=== PATIENT | female | born 1975 | race Caucasian/White ===

== ENCOUNTER 2017-08-29 11:17 | Emergency (ER) | payer MEDICAID ==
[2017-08-29] MEDS ORDERED: traMADol 50 MG TAB PO ONE (12:58)
--- NOTE | 2017-08-29 12:58 | EDPHY ---
H & P Stated Complaint: L Lumbar pain Time Seen by Provider: 08/29/17 12:39 HPI/ROS: CHIEF COMPLAINT: Acute low back pain HISTORY OF PRESENT ILLNESS: 42-year-old female history of chronic back pain with lumbar fusion in January 2017 in [place], or again, recently moved to [place]. Yesterday she was cleaning, bent over and felt something "pop" in her lumbar region. [place] immediate pain, felt new left lower extremity radiculopathy. No incontinence no retention. No saddle anesthesia. REVIEW OF SYSTEMS: A ten point review of systems was performed and is negative with the exception of the items mentioned in the HPI PAST MEDICAL & SURGICAL HISTORY: Lumbar fusion January 2017 in [place] SOCIAL HISTORY: Nonsmoker recently moved to [place] PHYSICAL EXAM (Prior to examination, patient consented to physical exam, hands were washed and my usual and customary physical exam procedures followed) 1) GENERAL: Well-developed, well-nourished, alert and oriented. Appears uncomfortable laying in a right lateral recumbent position. 2) HEAD: Normocephalic, atraumatic 3) HEENT: Pupils equal, round, reactive to light bilaterally. Sclera anicteric. Nasopharynx, oropharynx, clear, no lesions. 4) NECK: Full range of motion, no meningeal signs. 5) LUNGS: Clear auscultation bilaterally, no wheezes, no rhonchi, no retractions. 6) HEART: Regular rate and rhythm, no murmur, no heave, no gallop. 7) ABDOMEN: No guarding, no rebound, no focal tenderness, negative McBurney's, negative Lopez's, negative Rovsing's, negative peritoneal sign, 8) MUSCULOSKELETAL: Moving all extremities, no focal areas of tenderness, no obvious trauma. No peripheral edema or discoloration. 9) BACK: Multiple surgical scars in lumbar region noted. Tender to palpation midline. No signs of acute trauma.. No CVA tenderness, no midline vertebral tenderness, no fluctuance, no step-off, no obvious trauma, no visual or palpable abnormality. Patella, Achilles reflexes intact to bilateral strength 5 /5 10) SKIN: No rash, no petechiae. 11) NEURO: Awake, alert, and oriented to person, place and time. Answers questions appropriately. There were no obvious focal neurologic abnormalities. No cerebellar dysfunction. Normal steady gait. Upper and lower extremities bilaterally with strength 5 / 5, reflexes 2+.. DIFFERENTIAL DIAGNOSIS: In no particular order, including but not limited to, fracture, sprain/strain, cauda equina, spinal infectious etiology. - Personal History LMP (Females 10-55): Hysterectomy Current Tetanus/Diphtheria Vaccine: Yes Current Tetanus Diphtheria and Acellular Pertussis (TDAP): Yes - Medical/Surgical History Hx Asthma: Yes Hx Chronic Respiratory Disease: No Hx Diabetes: No Hx Cardiac Disease: Yes Hx Renal Disease: No Hx Cirrhosis: No Hx Alcoholism: No Hx HIV/AIDS: No Hx Splenectomy or Spleen Trauma: No Other PMH: HYsterectomy, DDD, L5 fusion, POTS, asthma, - Social History Smoking Status: Never smoked Constitutional: Initial Vital Signs Temperature (C) 36.8 C 08/29/17 11:27 Heart Rate 78 08/29/17 11:27 Respiratory Rate 16 08/29/17 11:27 Blood Pressure 143/87 H 08/29/17 11:27 O2 Sat (%) 98 08/29/17 11:27 O2 Delivery Mode Room Air Allergies/Adverse Reactions: acetaminophen [From Vicodin] Allergy (Verified 08/29/17 11:26) adhesive tape Allergy (Verified 08/29/17 11:30) alcohol Allergy (Verified 08/29/17 11:30) barium iodide Allergy (Verified 08/29/17 11:26) fentanyl Allergy (Verified 08/29/17 11:26) hydrocodone [From Vicodin] Allergy (Verified 08/29/17 11:26) hydromorphone Allergy (Verified 08/29/17 11:57) iodine Allergy (Verified 08/29/17 11:26) ketorolac [From Toradol] Allergy (Verified 08/29/17 11:57) morphine Allergy (Verified 08/29/17 11:26) Home Medications: Medication Instructions Recorded Lyrica 08/29/17 Vitamin C 08/29/17 Zyrtec 08/29/17 methylPREDNISolone [Medrol Dose 4 mg PO DAILY #1 ea 08/29/17 Isra] traMADol [Ultram 50 mg (*)] 50 mg PO Q6 #12 tab 08/29/17 Medical Decision Making - Diagnostics Imaging Results: Imaging Impressions Lumbar Spine X-Ray 08/29/17 12:03 Impression: 1. L4 through S1 fusion constructs demonstrate L5-S1 severe degenerative disk disease with grade 2 anterolisthesis, likely resulting in spinal canal and neural foraminal stenosis. 2. No prior studies for comparison. Lumbar Spine MRI 08/29/17 12:58 Impression: 1. L5-S1: Grade 2 spondylolisthesis with severe degenerative disk disease and posterior fusion constructs, resulting in severe bilateral neural foraminal stenosis without central canal stenosis. 2. Please see above findings at specific disk levels. Findings and recommendations discussed with Chinedu Elias PA-C at 1458 hours on August 29, 2017. Final report concurs with initial preliminary interpretation. ED Course/Re-evaluation: 1:00 p.m.: Patient was evaluated by myself. She is neurologically intact lower extremities with brisk reflexes. She does note new neurologic complaints after bending over yesterday felt a pop in her lumbar spine has new left lower extremity radiculopathy. I discussed case with secondary supervising physician Dr. Marques Galaviz in the ER. Plan will be MRI. We discussed pain management. She has multiple allergies, states that she is able to tolerate Demerol and tramadol. I discussed her pain management from the emergency department, discussed alternatives to opiates therapy, offered medications such as ketamine, Haldol. She declines these. States that tramadol has provided analgesia in the past. Will administer oral tramadol. 3:19 p.m.: Phone consultation with Dr. Duran, Neurosurgery who reviewed the patient's images. The patient's pain is currently controlled the recommend discharge home with analgesia, Medrol Dosepak, follow up in office. I discussed this with the patient she feels comfortable with this plan. - Data Points Medications Given: Discontinued Medications Tramadol HCl (Ultram) 50 mg PO EDNOW ONE Stop: 08/29/17 12:59 Last Admin: 08/29/17 13:08 Dose: 50 mg Departure - Departure Disposition: Home, Routine, Self-Care Clinical Impression: Low back pain Qualifiers: Chronicity: acute Back pain laterality: left Sciatica presence: with sciatica Sciatica laterality: sciatica of left side Qualified Code(s): M54.42 - Lumbago with sciatica, left side Condition: Good Instructions: Back Pain (ED) Additional Instructions: Seek medical attention if you develop new or worsening pain, if you develop bladder or bowel dysfunction, numbness around your perineum, foot drop, or any other symptoms that concern you. Referrals: Randall Duran MD [Medical Doctor] - As per Instructions Prescriptions: methylPREDNISolone [Medrol Dose Isra] 4 mg PO DAILY #1 ea traMADol [Ultram 50 mg (*)] 50 mg PO Q6 #12 tab
[2017-08-29 15:33] VITALS: BP 135/92; PULSE 69; RESP 12; TEMP 97.5; O2SAT 97
== END 2017-08-29 15:33 | disposition home or self-care (01) ==
DX: M54.42 Lumbago with sciatica, left side (principal); J45.909 Unspecified asthma, uncomplicated

== ENCOUNTER → 2017-09-18 | Outpatient (CLI) | payer MEDICAID | LOC: FIMAGING 10:08 | PROVIDERS: ATTEND Neurological Surgery | DX: M54.9 Dorsalgia, unspecified (principal); M48.07 Spinal stenosis, lumbosacral region; K57.30 Diverticulosis of large intestine without perforation or abscess without bleeding; R93.8 Abnormal findings on diagnostic imaging of other specified body structures; Z98.1 Arthrodesis status ==

== ENCOUNTER 2018-03-01 13:59 | Emergency (ER) | payer MEDICAID ==
--- NOTE | 2018-03-01 14:18 | EDPHY ---
H & P Stated Complaint: Foot pain s/p computer chair dropped on foot Time Seen by Provider: 03/01/18 14:13 HPI/ROS: HPI: This is a 42-year-old female who presents with Chief Complaint: Foot pain s/p computer chair dropped on foot Location: Left ankle and foot Quality: Injury Duration: On Thursday Signs and Symptoms: No bleeding, no radiation, no numbness, no weakness, no tingling, no incontinence, no decreased range of motion, + swelling, + pain, no fever, + bruising Timing: Acute Severity: Moderate Context: Patient reports that she was cleaning her child's room on Thursday when she accidentally knocked over the wooden chair. The wooden discharged landed directly on the lateral aspect of her left ankle and foot. She reports that she felt immediate, constant, nonradiating pain. She i-STAT and stayed off of a that day. The next day she was up and ambulatory due to family function. Today she woke up with the bruising and increased swelling and pain. She reports pain worsens with weight-bearing status. Denies any radiation/ weakness/decreased range of motion/paresthesias. Patient reports that she has difficulty with her right shoulder. 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 CONSTITUTIONAL: Pleasant middle-aged white female, awake and alert, no obvious distress HEENT: Atraumatic and normocephalic. EXTREMITIES: 2/2 pulses, strength 5/5, left Ankle: Lateral malleolus mild swelling and ecchymosis noted with tenderness with palpation; left base of 5th digit mild ecchymosis and tenderness with palpation. Plantar flexion to 50, dorsiflexion to 20. Foot inversion to 35 degree. No tenderness/swelling Anterior talofibular ligament. No tenderness/swelling Calcaneofibular ligament , no tenderness/swelling posterior talofibular ligament, no tenderness/swelling posterior inferior tibiofibular ligament. Achilles tendon intact. DIP/PIP/MCP flexion/extension intact with good light touch sensation. no deformities, no clubbing, no cyanosis or edema. NEUROLOGICAL: no focal neuro deficits. GCS 15. Light touch sensation intact. SKIN: Warm and dry, no erythema. no rash. Good capillary refill. Source: Patient Exam Limitations: No limitations - Personal History LMP (Females 10-55): Hysterectomy Current Tetanus/Diphtheria Vaccine: Yes Current Tetanus Diphtheria and Acellular Pertussis (TDAP): Yes - Medical/Surgical History Hx Asthma: Yes Hx Chronic Respiratory Disease: No Hx Diabetes: No Hx Cardiac Disease: Yes Hx Renal Disease: No Hx Cirrhosis: No Hx Alcoholism: No Hx HIV/AIDS: No Hx Splenectomy or Spleen Trauma: No Other PMH: HYsterectomy, DDD, L5 fusion, POTS, asthma, - Social History Smoking Status: Never smoked Constitutional: Initial Vital Signs Temperature (C) 36.7 C 03/01/18 14:03 Heart Rate 88 03/01/18 14:03 Respiratory Rate 16 03/01/18 14:03 Blood Pressure 119/83 H 03/01/18 14:03 O2 Sat (%) 95 03/01/18 14:03 O2 Delivery Mode Room Air Allergies/Adverse Reactions: acetaminophen [From Vicodin] Allergy (Verified 08/29/17 11:26) adhesive tape Allergy (Verified 08/29/17 11:30) alcohol Allergy (Verified 08/29/17 11:30) barium iodide Allergy (Verified 08/29/17 11:26) fentanyl Allergy (Verified 08/29/17 11:26) hydrocodone [From Vicodin] Allergy (Verified 08/29/17 11:26) hydromorphone Allergy (Verified 08/29/17 11:57) iodine Allergy (Verified 08/29/17 11:26) ketorolac [From Toradol] Allergy (Verified 08/29/17 11:57) morphine Allergy (Verified 08/29/17 11:26) Home Medications: Medication Instructions Recorded Vitamin C 08/29/17 Zyrtec 08/29/17 traMADol [Ultram 50 mg (*)] 50 mg PO Q6 #12 tab 08/29/17 Medical Decision Making - Diagnostics Imaging Results: Imaging Impressions Ankle X-Ray 03/01/18 14:17 Impression: Negative left ankle series. Foot X-Ray 03/01/18 14:17 Impression: Negative left foot radiographs. Procedures: Procedure: Splint placement. A left walking boot was applied by the Emergency Room cardiac monitor technician. After application of the splint I returned and re-examined the patient. The splint was adequately immobilizing the joint and distal to the splint the patient's circulation and sensation was intact. ED Course/Re-evaluation: Left foot x-ray, left ankle x-ray ordered and my read via PAC shows no fracture , dislocation. + soft tissue swelling noted Placed in walking boot, RICE, orthopedic follow-up as needed No signs of neurovascular compromise/tenting of skin/compartment syndrome/ extremities and joints examined above and below area of concern and are neurovascularly intact. This patient was seen under the supervision of my secondary supervising physician. I evaluated care for this patient independently. Discussed this patient with Dr. Carrion. Differential Diagnosis: Ankle injury differential diagnosis includes but is not limited to tibia fracture, fibula fracture, metatarsal fracture, LisFranc fracture, achilles tendon rupture, sprain. Departure - Departure Disposition: Home, Routine, Self-Care Clinical Impression: Contusion of left ankle, initial encounter Left ankle sprain Qualifiers: Encounter type: initial encounter Involved ligament of ankle: unspecified ligament Qualified Code(s): S93.402A - Sprain of unspecified ligament of left ankle, initial encounter Condition: Good Instructions: Ankle Sprain (ED), Contusion in Adults (ED) Additional Instructions: Wear the walking boot while out of bed until pain free. Take Tylenol 650 mg every 4 hours and/or Ibuprofen 600 mg every 8 hours with food as needed for pain. Apply ice for 30 minutes at a time; 2-3 times per day for the next 1-2 days. Follow up with Orthopedics in 1-2 weeks if symptoms persist at which time they will evaluate and recommend with you if conservative management versus MRI of the ankle is indicated. The x-rays obtained in the emergency department today demonstrate no evidence of an obvious fracture. Sometimes fractures are not obvious on the initial set of x-rays performed in the ED. For this reason, you should have repeat x-rays performed in 7-10 days if you are having any pain exclude the possibility of an occult fracture. Referrals: Willa Walker PA [Primary Care Provider] - As per Instructions Costa Burks MD [Medical Doctor] - As per Instructions
[2018-03-01 15:31] VITALS: BP 117/89
== END 2018-03-01 15:29 | disposition home or self-care (01) ==
DX: S93.402A Sprain of unspecified ligament of left ankle, initial encounter (principal); W20.8XXA Other cause of strike by thrown, projected or falling object, initial encounter; Y92.013 Bedroom of single-family (private) house as the place of occurrence of the external cause; Y93.E9 Activity, other interior property and clothing maintenance; Y99.8 Other external cause status

== ENCOUNTER 2018-03-05 10:40 | Emergency (ER) | payer MEDICAID ==
[2018-03-05] MEDS ORDERED: KETOROLAC 30 MG/1 ML SDV IM ONE (11:05)
--- NOTE | 2018-03-05 11:05 | EDPHY ---
General Time Seen by Provider: 03/05/18 10:54 Narrative: CHIEF COMPLAINT: Shoulder pain, shoulder mass HISTORY OF PRESENT ILLNESS: Patient presents with complaints of right shoulder pain and shoulder mass. She reports a right-sided breast mass that has been present for for 5 months that she is in the middle of workup for. She says she has had studies ordered by her primary care physician but has not gone to them "because life has gotten in the way."She now reports significant pain in the right shoulder. Difficult to move the shoulder. Radiates into the entire arm. Some tingling of the right arm. She has minimal neck pain. No trauma or injury. No drainage or bleeding. No other associated complaints or modifying factors. REVIEW OF SYSTEMS: 10 systems were reviewed and negative with the exception of the elements mentioned in the history of present illness. PCP: Dr. Walker SPECIALISTS: Pending PAST MEDICAL HISTORY: Right breast mass, degenerative disc disease, low back pain, pots, asthma PAST SURGICAL HISTORY: L5 fusion, hysterectomy SOCIAL HISTORY: CC moved from [place]. Lives independently with her children FAMILY HISTORY: Noncontributory EXAMINATION: General Appearance: Alert, no distress. Tearful but consolable Head: normocephalic, atraumatic Eyes: Pupils equal and round, no conjunctival pallor or injection ENT, Mouth: Mucous membranes moist Neck: Normal inspection, supple, non-tender. No crepitus or deformity. Respiratory: Lungs are clear to auscultation Cardiovascular: Regular rate and rhythm no murmur symmetric radial pulses 2+. Back: non-tender, no bony abnormalities Neurological: A&O, nonfocal, normal gait. Intern Product Marketing Manager strength is symmetric. No wrist drop. Interossei strength symmetric. Skin: Warm and dry, no rash. No petechiae or purpura. No abscess or cellulitis of the right upper extremity Extremities: Moderate tenderness of the right anterior deltoid. I do not appreciate any fluctuance, crepitus or deformity. Range of motion limited by pain in the shoulder. Range of motion of the elbow symmetric. Psychiatric: Mood and affect normal DIFFERENTIAL DIAGNOSES: Including but not limited to abscess, cyst, chondrocalcinosis, mass MDM: 11:05 a.m. Right shoulder pain and possible cystic versus lymphadenopathy changes of the right shoulder with additional right upper extremity suspected radicular pain. She has ongoing evaluation for right breast mass, but her vital signs are within normal limits. She has no chest pain or shortness of breath. I have ordered Toradol for pain as she says this significantly helped her pain. This was listed as an allergy, but she says that is incorrect. This will be removed from her list. I have ordered x-ray of the shoulder and neck. She is in no acute distress with vital signs are within normal limits. 11:50 a.m. X-ray as read by me, without radiologist reveals abdomen appearance of the right shoulder joint space. No fracture dislocation. 12:00 p.m. X-ray has been read by radiologist. There is abnormal appearance in the right shoulder joint space. Recommends further imaging delineate. 12:10 p.m. I re-evaluated the patient. We discuss short course of Toradol in conjunction with her Ultram. We discussed follow up with primary care physician and orthopedist for further evaluation shoulder. I do recommend that she obtain outpatient MRI for this. 1:00 p.m. I have also discussed the case with keycase assembler, Julia. She will contact the patient and her primary care physician to help facilitate further workup SUPERVISION: Patient was independently examined, but I discussed the case with my secondary supervising physician Dr. Toure CONSULTATION: None - History Smoking Status: Never smoked - Objective Vital Signs: Initial Vital Signs Temperature (C) 97.9 F 03/05/18 10:46 Heart Rate 97 03/05/18 10:46 Respiratory Rate 24 H 03/05/18 10:46 Blood Pressure 129/94 H 03/05/18 10:46 O2 Sat (%) 96 03/05/18 10:46 O2 Delivery Mode Room Air Allergies/Adverse Reactions: acetaminophen [From Vicodin] Allergy (Verified 03/05/18 10:46) adhesive tape Allergy (Verified 03/05/18 10:46) alcohol Allergy (Verified 03/05/18 10:46) barium iodide Allergy (Verified 03/05/18 10:46) fentanyl Allergy (Verified 03/05/18 10:46) hydrocodone [From Vicodin] Allergy (Verified 03/05/18 10:46) hydromorphone Allergy (Verified 03/05/18 10:46) iodine Allergy (Verified 03/05/18 10:46) morphine Allergy (Verified 03/05/18 10:46) Home Medications: Medication Instructions Recorded Vitamin C 08/29/17 Zyrtec 08/29/17 traMADol [Ultram 50 mg (*)] 50 mg PO Q6 #12 tab 08/29/17 Ketorolac Tromethamine [Toradol 1 tab PO Q8 PRN #9 tab 03/05/18 10mg tab] Medications Given: Discontinued Medications Ketorolac Tromethamine (Toradol) 30 mg IM EDNOW ONE Stop: 03/05/18 11:06 Last Admin: 03/05/18 11:33 Dose: 30 mg Miscellaneous Medication (Icy Hot Lidocaine/Menthol 4%/1% Patch) 1 patch TD EDNOW ONE Stop: 03/05/18 12:09 Last Admin: 03/05/18 12:31 Dose: 1 patch Departure - Departure Disposition: Home, Routine, Self-Care Clinical Impression: Shoulder pain Qualifiers: Chronicity: acute Laterality: right Qualified Code(s): M25.511 - Pain in right shoulder Condition: Good Instructions: Arthralgia (ED), Shoulder Pain (ED) Additional Instructions: 1. Contact orthopedist on-call for definitive care of the right shoulder pain 2. Contact your primary care physician for ongoing workup of the right breast mass, possible soft tissue changes the right shoulder. You will likely need MRI of the right shoulder outpatient. 3. ED precautions as discussed 4. Lidoderm patches [id number] as needed Referrals: Willa Walkre PA [Primary Care Provider] - As per Instructions Jamel Pacheco MD [Medical Doctor] - As per Instructions Prescriptions: Ketorolac Tromethamine [Toradol 10mg tab] 1 tab PO Q8 PRN #9 tab PRN Reason: Pain, Breakthrough
[2018-03-05] MEDS ORDERED: LIDOCAINE 4%/MENTHOL 1% PATCH TD ONE (12:08)
[2018-03-05 12:51] VITALS: BP 129/73
--- NOTE | 2018-03-05 17:27 | ASMTCMCOM ---
CM Note CM Note Notes: ED WILLOW Carter requested follow up to pt's PCP for MRI of apparent breast mass.This SW spoke with Tracy at [facility] [phone] who made a note regarding the ED visit and doctor's concerns. He stated that a nurse will reach out to the patient to schedule a follow up with WILLOW Walker and an MRI. Date Signed: 03/05/2018 05:08 PM Electronically Signed By:Conor Carmona LCSW
[2018-03-05] MEDS ORDERED: PATCH REMOVAL 1 EA PATCH TD SCH (21:00)
== END 2018-03-05 12:50 | disposition home or self-care (01) ==
DX: M25.511 Pain in right shoulder (principal)
CPT/HCPCS: J1885

== ENCOUNTER 2018-07-01 11:48 | Day surgery (SDC) | payer MEDICAID ==
[2018-07-01] MEDS ORDERED: LIDOCAINE 1% 300 MG/30 ML SDV ONE (11:49)
[2018-07-01] MEDS ORDERED: BUPIVACAINE 0.5% 30 ML SDV ONE (11:50)
[2018-07-01] MEDS ORDERED: LR 1,000 ML IV ONE (12:01)
--- NOTE | 2018-07-01 12:21 | PDHPUP ---
History & Physical Update H&P update statement: This history and physical update is based on an assessment of the patient which was completed after admission or registration (within 24 hours), but prior to the surgery/procedure. H&P update: H&P reviewed & patient examined, changes noted H&P changes: left medial malleolar injury and swelling
[2018-07-01] MEDS ORDERED: DEXAMETHASONE 4 MG/ML VIAL ONE ×2 (13:10)
[2018-07-01] MEDS ORDERED: ONDANSETRON 4 MG/2 ML VIAL ONE (13:10)
[2018-07-01] MEDS ORDERED: PROPOFOL/EMULSION 500 MG/50 ML BOTTLE IV ONE (13:10)
[2018-07-01] MEDS ORDERED: ROCURONIUM 50 MG/5 ML VIAL ONE (13:10)
[2018-07-01] MEDS ORDERED: LIDOCAINE 2% 100 MG/5 ML SYR ONE (13:11)
[2018-07-01] MEDS ORDERED: KETOROLAC 30 MG/1 ML SDV ONE (13:22)
--- NOTE | 2018-07-01 13:42 | CPEKG ---
Test Reason : OPEN Blood Pressure : / mmHG Vent. Rate : 062 BPM Atrial Rate : 064 BPM P-R Int : 164 ms QRS Dur : 094 ms QT Int : 429 ms P-R-T Axes : 042 -53 032 degrees QTc Int : 436 ms Sinus rhythm Inferior infarct, old Consider anterior infarct Confirmed by Marco Odonnell ([id number]) on 07/01/2018 1:42:02 PM Referred By: Confirmed By:Marco Odonnell
--- NOTE | 2018-07-01 13:48 | PDANEPAE ---
ANE History of Present Illness diagnostic laparoscopy and ventral hernia repair ANE Past Medical History - Cardiovascular History Hx Hypertension: No Hx Arrhythmias: No Hx Chest Pain: No Hx Coronary Artery / Peripheral Vascular Disease: No Hx CHF / Valvular Disease: No Hx Palpitations: No Cardiovascular History Comment: POTS - Pulmonary History Hx COPD: No Hx Asthma/Reactive Airway Disease: Yes Hx Recent Upper Respiratory Infection: No Hx Oxygen in Use at Home: No Hx Sleep Apnea: No Sleep Apnea Screening Result - Last Documented: Negative Pulmonary History Comment: uses inhaler. 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 anxiety - Cancer History Hx Cancer: No - Congenital Disorder History Hx Congenital Disorders: No - GI History Hx Gastrointestinal Disorders: Yes Gastrointestinal History Comment: diverticulitis - Other Health History Other Health History: left side root canal prongs exposed - Chronic Pain History Chronic Pain: Yes (lower back on left,right shoulder) - Surgical History Prior Surgeries: L 4/5 sx 2017 4 Titanium bolts and 6 fusions. hernia repair 2010. 3 c-sections. hysterectomy ANE Review of Systems Review of Systems: - Exercise capacity METS (RN): 3 METS ANE Patient History - Allergies Allergies/Adverse Reactions: acetaminophen [From Vicodin] Allergy (Verified 06/16/18 14:47) adhesive tape Allergy (Verified 06/16/18 14:47) alcohol Allergy (Verified 06/16/18 14:47) barium iodide Allergy (Verified 06/16/18 14:47) fentanyl Allergy (Verified 06/16/18 14:47) hydrocodone [From Vicodin] Allergy (Verified 06/16/18 14:47) hydromorphone Allergy (Verified 06/16/18 14:47) iodine Allergy (Verified 06/16/18 14:47) latex Allergy (Verified 06/16/18 14:47) morphine Allergy (Verified 06/16/18 14:47) - Home Medications Home medications: home medication list seen and reviewed Home Medications: Vitamin C 08/29/17 [Last Taken 06/24/18] Zyrtec 08/29/17 [Last Taken 07/01/18 08:30] Oxybutynin 06/16/18 [Last Taken 07/01/18 08:30] traMADol [Ultram 50 mg (*)] 06/16/18 [Last Taken 07/01/18 08:30] - NPO status NPO Status: no food or drink >8 hours NPO Since - Liquids (Date): 07/01/18 NPO Since - Liquids (Time): 08:30 NPO Since - Solids (Date): 06/30/18 NPO Since - Solids (Time): 22:30 - Anes Hx Anes Hx: no prior problems - Smoking Hx Smoking Status: Former smoker - Alcohol Use Alcohol Use: None - Family Anes Hx Family Anes Hx: none Family Hx Anesthesia Complications: none ANE Labs/Vital Signs - Vital Signs Blood Pressure: 120/87 Heart Rate: 63 Respiratory Rate: 16 O2 Sat (%): 96 Height: 160.02 cm Weight: 88.451 kg ANE Physical Exam - Airway Neck exam: decreased ROM Mallampati Score: Class 2 Mouth exam: poor dentition - Pulmonary Pulmonary: no respiratory distress - Cardiovascular Cardiovascular: regular rate and rhythym - ASA Status ASA Status: II ANE Anesthesia Plan Anesthesia Plan: general endotracheal anesthesia (will try morphine if opiates needed for post op pain)
[2018-07-01] MEDS ORDERED: ONDANSETRON 4 MG/2 ML VIAL IVP PRN (14:32)
[2018-07-01] MEDS ORDERED: NALOXONE HCL 0.4 MG/ML INJ IVP PRN (14:32)
[2018-07-01] MEDS ORDERED: METOCLOPRAMIDE 10 MG/2 ML VIAL IVP PRN (14:32)
[2018-07-01] MEDS ORDERED: LR 500 ML IV PRN (14:32)
[2018-07-01] MEDS ORDERED: PHENYLEPHRINE HCL 100 MCG/ML SYR IVP PRN (14:32)
[2018-07-01] MEDS ORDERED: PROMETHAZINE HCL 25 MG/ML INJ IVP PRN (14:32)
[2018-07-01] MEDS ORDERED: traMADol 50 MG TAB PO ONE (14:33)
[2018-07-01] MEDS ORDERED: NEOSTIGMINE METHYLSULFATE 5 MG/5 ML SYR ONE (14:43)
[2018-07-01] MEDS ORDERED: hydrALAZINE 20 MG/ML VIAL ONE (14:43)
[2018-07-01] MEDS ORDERED: GLYCOPYRROLATE 0.2 MG/1 ML VIAL ONE ×2 (14:46)
--- NOTE | 2018-07-01 16:45 | POSTOPPROG ---
Post Op Note Date of Operation: 07/01/18 Surgeon: Harmeet Cadena Anesthesiologist: Hua Anesthesia: GET(General Endotracheal) Pre-op Diagnosis: ventral hernia Post-op Diagnosis: same Procedure: lap to open retrorectus repair with mesh Inf/Abcess present in the surg proc area at time of surgery?: No
[2018-07-01 16:57] VITALS: BP 117/81
--- NOTE | 2018-07-01 16:59 | SUROPNOTE ---
[facility] Operative Report - Surgery Date of surgery: 07/01/2018 Indications for operation: This is a 43-year-old patient presents to the hospital for left lower quadrant abdominal pain previous history of hernia repair multiple surgeries including and hysterectomy. The patient has had CT scan which does not demonstrate a hernia at the site of her pain. She is consented for diagnostic laparoscopy possible laparoscopic or open hernia repair with mesh. Preop diagnosis: Ventral hernia Postop diagnosis same Procedure: Diagnostic laparoscopy. Explantation of mesh from prior repair. Open retro rectus ventral hernia repair Surgeon: Dr. Cadena. Anesthesiologist: Dr. Hua moss EBL 50 mL Fluid given 1 L crystalloid Procedure: The patient is brought to the operative room after induction of endotracheal anesthesia in supine position her abdomen is prepped chlorhexidine and draped sterilely time-out procedure was then performed according institutional standards. The patient has local anesthetic infused in skin and subcutaneous tissues of trocar sites in the right upper quadrant and optical trocar placement 5 mm scope is done in the standard fashion. The abdomen is insufflated to 15 torr with carbon dioxide 1 working trocars placed in a right flank under direct visualization the scar tissue and omentum to the anterior abdominal wall was taken down with blunt dissection and judicious use of bipolar energy. The mesh cyst discovered at the area of her pain and there is a diastasis of the rectus muscle and are hernia noted on close the pelvis. In light of this the laparoscopy is discontinued and the port sites were closed using 4 Monocryl local anesthetic infused Danielito subcutaneous tissues of the lower midline laparotomy site this deepened with electrocautery the mesh on is identified and explanted from the out left rectus sheath and retro rectus on it and preperitoneal on exposure is done underneath the rectus muscle inferior to the umbilicus this area after dissecting to healthy tissue is then reapproximated using 0 Vicryl suture 10 x 15 cm Ventralex on mesh is then placed into the preperitoneal and retro rectus space is and secured using 0 Vicryl suture the rectus muscle is then reapproximated using over 0 Vicryl and it is also fixed to the on anterior surface of the mesh. After insuring hemostasis needle instrument sponge counts were verified to be correct the anterior rectus sheath is then reapproximated using PDS suture. The skin is reapproximated using on a 4 Monocryl dressing of Dermabond is applied to all incisions the patient is an awakened extubated and taken to the recovery room in stable condition no immediate complications.
== END 2018-07-01 18:27 | disposition home or self-care (01) ==
LOC: FSGY 11:48
PROVIDERS: ATTEND Surgery
DX: K43.9 Ventral hernia without obstruction or gangrene (principal); Z53.31 Laparoscopic surgical procedure converted to open procedure; J45.909 Unspecified asthma, uncomplicated
CPT/HCPCS: C1781; J0360; J1100; J1885; J2001; J2270; J2405; J2704; J2710